=== PATIENT | female | born 1950 | race Caucasian/White ===

== ENCOUNTER 2016-06-13 11:33 | Day surgery (SDC) | payer MEDICARE ==
[~2016-06-13] VITALS: Ht 165.1 cm; Wt 76.9 kg
[2016-06-13] VITALS (15 sets, daily range): BP systolic 112–184; BP diastolic 65–94; PULSE 65–88; RESP 13–19; O2SAT 94–100
[2016-06-13] MEDS: Lactated Ringer's 1,000 ML IV SCH ×3 (05:00→13:38)
[~2016-06-13 11:33] MED LIST: ALPR0.5T8 PO; AMLO5TAB2 PO; ATOR20TA65 PO; CeFAZolin Inj 2 GM in IV Premix 1 EACH IV ONE; GABA-502 PO; HYDR25TA4 PO
[2016-06-13] MEDS ORDERED: fentaNYL-PF 50 mCg/mL 2 mL Inj ONE (11:34)
[2016-06-13] MEDS ORDERED: HYDROmorphone 2 mg/mL Inj ONE (11:34)
[2016-06-13] MEDS ORDERED: Ondansetron 2 mg/mL 2 mL Inj ONE (11:34)
[2016-06-13] MEDS ORDERED: Propofol 10,000 mCg/mL 20 mL Inj ONE (11:34)
[2016-06-13] MEDS ORDERED: Dexamethasone 4 mg/mL Inj ONE (11:34)
[2016-06-13] MEDS ORDERED: Glycopyrrolate 0.2 MG/ML 1mL Inj ONE (11:34)
[2016-06-13] MEDS ORDERED: Neostigmine 1 mg/mL 10 mL Inj ONE (11:34)
[2016-06-13] MEDS ORDERED: Rocuronium 10 mg/mL 5 mL Inj ONE (11:34)
[2016-06-13] MEDS ORDERED: CeFAZolin Inj 2 gm / 50mL D5W IV ONE (11:53)
[2016-06-13] MEDS ORDERED: Lactated Ringer's 1,000 ML IV SCH (13:33)
[2016-06-13] MEDS ORDERED: Lactated Ringer's 500 ML IV PRN (13:33)
--- NOTE | 2016-06-13 13:33 | PCM.HPANE ---
Patient Data Surgeon Admitting Provider: Attending Provider:Cesar Crook MD Primary Care Physician:Vivienne Lares PA-C Other Provider: Reason for Visit Left Breast Dcis, Left Adrenal Mass Ht/WT & BMI Height (Feet): 5 Height (Inches): 5 Weight (Kilograms): 77.56 Body Mass Index 28.00 Allergies Coded Allergies: codeine (Verified Allergy, Unknown, 07/25/13) ENTERED FROM WRITTEN PREOP ORDER Past Anesthesia History Anesthesia History: Denies:: Abnormal Airway, Anesthesia Reactions, Difficult Intubation, Fam Anesthesia Reaction, Fam Malignant Hypertherm, Malignant Hyperthermia Diabetes History Hx Diabetes?: No MRSA MRSA: No Medications Hypertension Medication: Yes Home Meds Incl Beta Ta: No Reported Medications Alprazolam 0.5 Mg Tablet0.5 Mg PO TID PRN For Anxiety or Agitation Ref 0 04/26/16 Hydrochlorothiazide 25 Mg [id number] Mg PO DAILY Ref 0 04/26/16 Atorvastatin Calcium 20 Mg [id number] Mg PO DAILY Ref 0 04/26/16 Gabapentin 300 Mg [id number] Mg PO DAILY Ref 0 04/05/16 Amlodipine 5 Mg Tablet5 Mg PO DAILY Ref 0 04/05/16 History History of ENT Problems?: Yes HEENT History: Denies:: Abnormal Airway Difficult Intubation Dysphagia Sinus Problem Hx of Heart Problems?: No Cardiovascular History: Positive for:: Hypertension Denies:: Chest Pain Congestive Heart Failure Heart Murmur Pacemaker Rheumatic Fever Thrombophlebitis Hx of Respiratory Problem?: No Respiratory History: Denies:: Asthma COPD Emphysema Oxygen Administration Tuberculosis Use of C-PAP Machine Hx Neurologic Problems?: Yes Neurological History: Denies:: Alzheimer's Disease CVA Dementia Dizziness Headaches Seizures Hx of GI Problems?: Yes Gastrointestinal History: Positive for:: Gall Bladder Disease (removed) Denies:: Cirrhosis Diverticulitis Gastroesphageal Reflux Heartburn Hepatitis Rectal Bleeding Hx of Problems?: No Genitourinary History: Denies:: HX of Hemodialysis Kidney Stones Urinary Tract Infection Female Hx: Positive for:: Problems with Breasts? (left breast, BRCA2+ current admission problem) Denies:: Currently Endometriosis Pelvic Inflammatory Skin History: Denies:: History Skin Disorders? Pressure Ulcers Hx Musculoskeletal Problems?: No Musculoskeletal History: Positive for:: Back Injury (hx ruptured disk C3) Hx of Psycho/Social Problems?: No Psycho Social History: Denies:: Anxiety Bipolar Disorder Hx Depression Suicide Attempt Hx Surgeries?: Yes (hernia, , gallbladder) Hx Any Other Health Problems?: Yes Other History: Positive for:: Cancer (left breast) Hospitalization Denies:: Endocrine Disease Thyroid Disease History Blood Transfusions: Denies:: Blood Transfuse Reaction Blood Transfusions Hx Diabetes: No Hx Alcohol Use: Yes (1-2 glasses per week)Hx Substance Use: No Smoking Status: Never Smoker Have You Smoked inLast 12 mo: No Stop/Bang S-Snoring: Do You Snore Loudly: No T-Tired: feel tired, fatigued: No O-Obsered: Observed not breath: No P-Blood Pressure: treated: Yes B- Body Mass Index > 35 kg/m2: No A- Age over 50: Yes N- Neck Large Circumference: No G- Gender Male: No BARBARA Total Score: 2 Risk Assessment Category Category 1A: Patient has history of documented sleep apnea, and HAS NOT received any narcotic, sedative or anesthesia administration during this stay. Category 1B: Patient has history of documented sleep apnea, and HAS received any narcotic , sedative or anesthesia administration during this stay Category 2: Patient has SUSPECTED Obstructive Sleep Apnea, and HAS received any narcotic , sedative or anesthesia administration during this stay. Category 3: Patient has SUSPECTED Obstructive Sleep Apnea and HAS NOT received narcotic, sedative or anesthesia administration during this stay. Category 4: Outpatient in Procedural Areas with known sleep apnea or who screen positive for High Risk via the STOP/BANG questionnaire. Exam Exam General Appearance: Alert, Oriented X3, Cooperative, No Acute Distress HEENT/AIRWAY: MP 2, Neck Movement (FROM), Mouth Opening (3 FBMO) Lungs: Clear to Auscultation, Normal Air Movement Heart: Exam Unremarkable, Regular Rate/Rhythm, No Murmurs/Rubs/Gallops Plan Impression Patient chart reviewed, patient interviewed and anesthestic plan with risks, benefits, and alternatives discussed, and informed consent obtained. NPO Status: 02/19/13 ASA Physical Status: ASA2 Mod Systemic Disease Anesthetic Plan: GA Bene/Risks/Altern/Consents: Yes HP Complete Prior to Induction: Yes Preston Brink MD Jun 13, 2016 10:20
[2016-06-13] MEDS ORDERED: Atropine 0.4 mg/mL Inj IVPUSH PRN (13:35)
[2016-06-13] MEDS ORDERED: MetoCLOpramide 5 mg/mL 2 mL Inj IVPUSH PRN ×3 (13:35→19:20)
[2016-06-13] MEDS ORDERED: Ondansetron 2 mg/mL 2 mL Inj IVPUSH PRN ×3 (13:35→19:20)
[2016-06-13] MEDS ORDERED: HYDROmorphone 1 mg/mL Inj IVPUSH PRN ×2 (13:35→19:20)
[2016-06-13] MEDS ORDERED: EPHEDrine Sulfate 50 mg/mL Inj IVPUSH PRN (13:35)
[2016-06-13] MEDS ORDERED: Labetalol 5 mg/mL 4 mL Inj IV PRN (13:35)
[2016-06-13] MEDS ORDERED: Phenylephrine 10,000 mCg/mL Inj IVPUSH PRN (13:35)
[2016-06-13] MEDS ORDERED: Bupivacaine-MPF 0.5% W/EPI 30 mL Inj INFILTRATE ONE (13:38)
[2016-06-13] MEDS: Dextrose 5% Lactated Ringer's 1,000 ML IV SCH (14:32)
[2016-06-13] MEDS ORDERED: Morphine PCA 1 mg/mL 30 mL Inj IV PRN (14:35)
[2016-06-13] MEDS ORDERED: Acetaminophen IV 1,000 MG in IV Premix 1 EACH IV PRN (14:35)
--- NOTE | 2016-06-13 14:43 | PCM.SURGOP ---
Surgical Operative Report Date of Service: Jun 13, 2016 Pre Operative Diagnosis Left breast DCIS, BRCA2 mutation Post Operative Diagnosis Same Procedure: Left simple mastectomy, left axillary sentinel lymph node biopsy Surgeon and Marine Pilot: Surgeon: Cesar Crook MD Assistants: Hans Lemons PA-C Indication for Procedure 65-year-old woman who was diagnosed with left breast DCIS. She had an asymmetry with clustered amorphous calcifications in the left breast 10 o'clock position posterior depth. She had genetic testing which came back positive for BRCA2 mutation. She was also found to have a 6.2 cm left adnexal mass, and was referred to ENGINEERING ANALYST oncology in [place]. After consideration of her surgical options, she was interested in unilateral left simple mastectomy without breast reconstruction. After discussion of risks and benefits, she agreed to proceed with left simple mastectomy, left axillary sentinel lymph node biopsy. Findings: There were a total of 4 sentinel nodes in the left axilla. The first sentinel node had an ex vivo count of 247. The next specimen consisted of 2 lymph nodes , called sentinel lymph node #2 and 3, with an ex vivo count of 424. [place] lymph node #4 had an ex vivo count of 377. The background count was 28. Procedure Details Preoperatively, the patient underwent left breast radiotracer injection for sentinel lymph node identification, which was allowed to remain in the breast tissue for one hour. She was then brought to the operating room, where she underwent smooth induction of general anesthesia with an LMA. She was placed in the supine position, and was prepped and draped in wide sterile fashion. There was a strong radiotracer signal in the left axilla. An elliptical skin incision was made oriented transversely, encompassing the nipple areolar complex. Skin flaps were raised superiorly and inferiorly. Circumferential dissection was carried out as the skin and subcutaneous tissue was elevated off the underlying breast capsule. Margins of dissection were the left clavicle, the midline, the left inframammary crease, the left anterior axillary line. The left breast was then dissected off the chest wall, and pectoralis fascia was resected en bloc. Perforating medial and lateral vessels were controlled with medium hemoclips. There was no evidence of chest wall invasion. The left breast was oriented with suture, and passed off the field for permanent pathology. The left axillary fascia was then incised, gaining access to the loose areolar tissue of the axilla. Using the gamma probe as a guide, the areas of maximum radiotracer activity were isolated, dissected free. There were a total of 4 sentinel lymph nodes. None of them were pathologic by palpation. The first sentinel lymph node had an ex vivo gamma count of 247. The next specimen consisted of 2 visible lymph nodes, with an ex vivo gamma count of 424. The next lymph node, which was sentinel lymph node #4, had an ex vivo gamma count of 377. The background count in the left axilla was 28. Hemostasis was adequate. A 19 Indonesian round JARED drain was brought out through a separate incision laterally, and secured to the skin with a 2-0 nylon stitch. The skin incision was closed with interrupted deep dermal 3-0 Vicryl suture, and a running 4-0 Vicryl subcuticular stitch. Steri-Strips and sterile dressings were applied. At the end of the case all needle and sponge counts were correct 2. The patient was awakened from anesthesia without difficulty, and taken to the recovery room in satisfactory condition, having tolerated the procedure well. Complications There were no periprocedural complications identified. Surgical Specimen Removed: Yes Specimen sent to Pathology: Yes Surgical Specimen description: Left breast. Left axillary sentinel lymph node #1. Left axillary sentinel lymph nodes #2 and 3. Left axillary sentinel lymph node #4. Anesthetic Plan: GA Grafts, Implants: None Output, Estimated Blood Loss: 20 Blood Administration during sanz: No Drains: JARED Drain #1 Catheters: None copies to: Vivienne Lares PA-C; Artem Daniel Joshua D MD Jun 13, 2016 14:43
--- NOTE | 2016-06-13 14:52 | PCM.ANEP2 ---
Post Anesthesia Evaluation ASA/CMS Post Anesthesia VS in Patient's Normal Range?: Yes Resp Stable; Airway Patent?: Yes CV Function & Hydration Stable: Yes Mental Status Recovered?: Yes Pain control Satisfactory?: Yes N/V Control Satisfactory?: Yes Preston Brink MD Jun 13, 2016 14:52
--- NOTE | 2016-06-13 14:52 | PCM.ANEP1 ---
Post Anesthesia Phase 1 PACU Phase 1 Assessment Date of Service: Jun 13, 2016 Vital Signs Vital Signs Date Time Temp Pulse Resp B/P Pulse Ox O2 Delivery O2 Flow Rate FiO2 06/13/16 12:00 35.8 69 18 153/80 97 Room Air 06/13/16 11:51 70 17 153/80 97 Room Air Anesthetic Administered: GA Level of Alertness: Awake, talking MOHAMUD's with Equal Strength: Yes Pain: No Nausea or Vomiting: No Oxygen Delivery: Simple Mask Lungs: Clear to Auscultation, Normal Air Movement Dermatome Level: Full Sensation Preston Brink MD Jun 13, 2016 14:52
[2016-06-13] MEDS: fentaNYL-PF 50 mCg/mL 2 mL Inj IVPUSH PRN ×4 (15:19→16:50)
--- NOTE | 2016-06-13 16:38 | DRSVH ---
PROCEDURE: NM SENTINEL NODE INJECTION ONLY, LEFT BREAST RADIOPHARMACEUTICAL: 0.5 mCi Millipore filtered Tc-99m sulfur colloid. INDICATIONS: left breast cancer PROCEDURE: The indications, alternatives, benefits, risks, and complications of the procedure were explained to the patient. Written informed consent was obtained and placed in the chart. The area around the nip ple was prepped and draped in a sterile fashion. Tc-99m sulfur colloid was injected in the outer edg e of the areola in the left breast. No image was obtained. IMPRESSION: Administration of radiotracer into the left breast periareolar region for intra-operativ e sentinel lymph node localization. Dictated by: Ramirez Stearns M.D. on 06/13/2016 at 16:36 Approved by: Ramirez Stearns M.D. on 06/13/2016 at 16:36
[2016-06-13] MEDS ORDERED: ALPRAZolam 0.5 mg Tablet PO PRN (18:35)
[2016-06-13] MEDS ORDERED: HYDROmorphone PCA 0.2 mg/mL 30 mL Inj - Over 64 Yrs/SA IV PRN (19:20)
[2016-06-13] MEDS ORDERED: Ondansetron 8 mg ODT Tablet PO PRN (19:20)
[2016-06-13] MEDS ORDERED: HYDROmorphone 0.5 mg/0.5 mL iSecure Syringe IVPUSH PRN (19:20)
--- NOTE | 2016-06-13 19:53 | NUR ---
Admit to [facility] Pt arrived on [facility] from day surgery at 1815 hrs. Alert and oriented X 3. VSS. PIV intact and patent. Family with pt. Left chest dressing clean, dry, and intact. Personal possessions with pt and placed in closet. Care continues.
[2016-06-14 00:50] VITALS: BP 157/59; PULSE 83; RESP 16; O2SAT 94
--- NOTE | 2016-06-14 02:52 | NUR ---
Pain Good pain control with FLEX O WRITER OPERATOR dilaudid.VSS.[place]aven. po fluids and food w/o c/o nausea,UOP qs.Dressing CDI.JARED compressed with mod. amt. bloody drainage noted.Moving well with SBA.Sleeping soundly at this time and resting comfortably.Will cont. to monitor.
[2016-06-14] MEDS: Dextrose 5% Lactated Ringer's 1,000 ML IV SCH (03:49)
[2016-06-14 04:00] VITALS: RESP 16; O2SAT 93
[2016-06-14 04:49] VITALS: BP 143/81; PULSE 65; RESP 18; O2SAT 94
[2016-06-14] MEDS ORDERED: oxyCODONE-Acetamin 5-325 mg Tablet PO PRN (07:15)
[2016-06-14] MEDS ORDERED: OXYC1TAB24 PO (07:17)
--- NOTE | 2016-06-14 07:17 | PCM.DISURG ---
Surgical Discharge Instruction Date of Service Jun 14, 2016 Dates of Hospitalization Date of Hospital Admission Providers Admitting Physician: Primary Care Physician: Vivienne Lares PA-C Attending Physician: Cesar Crook MD Discharge Diagnosis Discharge Diagnosis left breast cancer Post Operative diagnosis Same Diet Discharge Diet: No restrictions Activity Discharge Activity-General: Activity as pain allows Dressing and Incisional Care Dressing Care: Allow Steri Stripes to fall off Hygiene: May shower Additional Instructions Discharge Instructions Strip JARED drain and record output daily, or more frequently as needed. Call the surgery clinic when JARED output is less than 30mL in 24 hours for 2 consecutive days, and the drain can be removed at that time. Follow Up Plan Follow Up Plan with Dr. Crook in 2 weeks Call your provider for: Fever (over 101.5), Discharge @ incision, pus discharge Cesar Crook MD Jun 14, 2016 07:17
--- NOTE | 2016-06-14 08:08 | PCM.DC.SUR ---
Discharge Summary Date of Service: Jun 14, 2016 Date of Hospital Admission: June 13, 2016 Date of Operation(s): June 13, 2016 Date of Discharge: June 14, 2016 Diagnosis at Time of Discharge Left breast DCIS, BRCA2 mutation Problems: (1) Breast cancer, left Qualifiers: Patient gender: female Status: Acute ICD Code: C50.912 Operation left simple mastectomy, left axillary sentinel lymph node biopsy Brief History and Physical: SUBJECTIVE: The patient is seen in followup. She is doing well. She had minimal pain overnight. She has no nausea. OBJECTIVE: Temperature 36.7, pulse 65, blood pressure 143/81, saturation 94% on room air. In general, she is sitting up in bed, in no acute distress. Chest is clear. Heart: Regular rate and rhythm. No murmurs. Breasts: Her left mastectomy incision is intact with no evidence of hematoma. Skin flaps are well perfused. The JARED drain is serosanguineous, output overnight was 70 cc. LABORATORY: Hematocrit 39.8. Creatinine 0.91, glucose 152. Consultants: None Hospital Course: The patient was taken to the operating room for a simple mastectomy of the left breast with a left axillary sentinel lymph node biopsy. The procedure was performed without incident and the patient was then transferred to the post anesthesia care unit in stable condition. After a short stay, she was then transferred to the surgical floor where she remained for 1 day. On hospital day number 2, she was found to be tolerating her pain well and was able to tolerate a regular diet. She was then discharged to home in stable condition. Pathology: Pending Disposition: To Home in good condition. Follow-up Plan: She will be discharged to home today after JARED drain teaching and physical therapy education for dedfb-am-auqswy exercises. Her JAI ALAI PLAYER will be discontinued and she will be placed on Percocet for pain. She will follow up in the Surgery Clinic when JARED output is less than 30 cc in a 24 hour period. Alprazolam (Alprazolam) 0.5 Mg Tablet 0.5 MG PO TID PRN PRN For Anxiety or Agitation (Reported) Amlodipine (Amlodipine) 5 Mg Tablet 5 MG PO DAILY (Reported) Atorvastatin Calcium (Atorvastatin Calcium) 20 Mg Tablet 20 MG PO DAILY ( Reported) Gabapentin (Gabapentin) 300 Mg Capsule 300 MG PO DAILY (Reported) Hydrochlorothiazide (Hydrochlorothiazide) 25 Mg Tablet 25 MG PO DAILY (Reported ) oxyCODONE-Acetaminophen 5-325 mg (oxyCODONE-Acetaminophen 5-325 mg) 1 Each Tablet 1 TAB PO Q6H PRN PRN For Pain Discharge Medications: Percocet 5-325, 1 PO every 6 hours as needed for pain. copies to: Vivienne Lares PA-C, Samuel L PA-C Jun 14, 2016 08:08
--- NOTE | 2016-06-14 08:14 | PROG NOTE ---
[address] [address] PROGRESS NOTE PATIENT: SUSAN RIOS : 1950 MR#: [id number] ADMIT: 06/13/2016 JOB ID: [id number] DATE: 06/14/2016 SUBJECTIVE: The patient is seen in followup. She is doing well. She had minimal pain overnight. She has no nausea. OBJECTIVE: Temperature 36.7, pulse 65, blood pressure 143/81, saturation 94% on room air. In general, she is sitting up in bed, in no acute distress. Chest is clear. Heart: Regular rate and rhythm. No murmurs. Breasts: Her left mastectomy incision is intact with no evidence of hematoma. Skin flaps are well perfused. The JARED drain is serosanguineous, output overnight was 70 cc. LABORATORY: Hematocrit 39.8. Creatinine 0.91, glucose 152. ASSESSMENT/PLAN: A 65-year-old woman with left breast cancer, postoperative day one, status post left simple mastectomy with left axillary sentinel lymph node biopsy. She is doing well clinically. She will be discharged to home today after JARED drain teaching and physical therapy education for nlyat-ta-lqilgl exercises. Her PRODUCT SCIENTIST will be discontinued and she will be placed on Percocet for pain. She will follow up in the Surgery Clinic when JARED output is less than 30 cc in a 24 hour period.
[2016-06-14 09:09] VITALS: RESP 16; O2SAT 98
--- NOTE | 2016-06-14 10:00 | NUR ---
Evaluation completed. Please go to "Notes" then click on "Assessments and Notes" (bottom left corner of screen). Then select appropriate discipline tab on top of screen.
--- NOTE | 2016-06-14 11:16 | NUR ---
Social Work-initial assessment/discharge: Data:See initial assessment. Pt is a 65 y/o female who was admitted for left breast per H&P. Pt's insurance is [employer] and [employer]. Pt's PCP is VICKY Logan. EMR reviewed. CHICA met with pt and David at bedside to discuss discharge planning, SW role explained. Pt is alert and oriented x3. Pt resides at home with her where she remains independent with ADLS. Pt does not use any DME and drives. Pt has no HH or SNF history. Pt has no regional intermodal truck driver care or VA benefits. SW discussed DPOA/ advanced directive and pt confirms she has completed this, SW encouraged a copy to be brought into the hospital. PT saw pt and cleared for home, no needs, ambulating 200ft. Pt is medically stable for discharge home today. Pt and agreeable to plan of home no needs. Pt's to transport home today. No discharge needs identified. All updated and agreeable to plan. Assessment:Pt who is independent at baseline. Plan:Pt to discharge home today via POV. No discharge needs identified. All updated and agreeable to plan. LEAH Lynch Addendum: 06/14/16 at 1119 by VESNA HODGES Amended: Links added.
--- NOTE | 2016-06-14 11:24 | NUR ---
Discharge Pt d/c'd home at approx 1120. Reviewed d/c instructions w/ patient and her sig other. No questions or concerns at this time. Demonstrated how to strip and drain JARED drain. IV d/c'd intact. Pt left w/ all belongings and hard copy of RX. Taken to her sig other's POV via w/c.
--- NOTE | 2016-06-20 14:26 | PATH ---
SURGICAL PATHOLOGY Attending Physician:Rob Hoang CASE STATUS: Signed Out PATIENT NAME: SUSAN RIOS PID: [id number] : 1950 DATE COLLECTED:06/13/2016 23:48 SPECIMEN: 1: Breast, Simple Mastectomy (lymph nodes submitted separately) 2: [place] [facility] 3: [place] [facility] 4: [place] [facility] CLINICAL HISTORY: LEFT BREAST DUCTAL CARCINOMA IN SITU 1). LEFT BREAST, SHORT STITCH SUPERIOR, LONG LATERAL, OUT @ 14:02 TIF 14:04 2). SENTINEL LYMPH NODE #1, OUT @ 14:07 TIF 14:11 3). SENTINEL LYMPH NODE #2 & 3, OUT @ 14:11 TIF 14:13 4). SENTINEL LYMPH NODE #4, OUT @ 14:14 TIF 14:15 FINAL DIAGNOSIS: 1. Left Breast, Mastectomy: Invasive carcinoma of the breast. Procedure: Total mastectomy. Lymph node sampling: Four sentinel lymph nodes (parts 2-4) and two non-sentinel lymph nodes (part 1). Tumor site: Medial. Tumor size: 10 mm. Histologic type: Invasive lobular carcinoma. Histologic grade: ([place] histologic score) Tubular differentiation: Score 3. Nuclear pleomorphism: Score 2. Mitotic rate: Score 1. Overall grade: Grade 2 (score 6/9). Tumor focality: Single focus. Ductal carcinoma in situ: Present. Size (extent) of DCIS: Estimated extent of DCIS is 5 mm. Architectural patterns: Solid. Nuclear grade: Grade 2 (intermediate). Necrosis: Present, focal. Lobular carcinoma in situ: Present, estimated 7 mm in area of invasive carcinoma. Macroscopic and microscopic extent of tumor: Skin: Not involved. Nipple: Not involved. Margins: All margins are uninvolved by invasive carcinoma. Distance to closest margin: Invasive carcinoma: Greater than 1 cm. In situ carcinoma: Greater than 1 cm. Lymph nodes: Total number of lymph nodes examined (sentinel and non-sentinel); 6. Number of sentinel lymph nodes examined: 4 (see parts 2-4). Lymph node involvement: Number of lymph nodes with metastases: 0. Pathologic staging: Primary tumor: pT1b. Regional lymph nodes: pN0. Additional pathologic findings: Fibrocystic changes, small fibroadenoma. Prior core biopsy site identified. Ancillary Studies: ER: 95% positive, moderate nuclear staining. ID: 40% positive, moderate nuclear staining. HER2: 2+, equivocal for overexpression of oncoprotein. HER2 testing by FISH is pending, addendum to follow. 2. [place] Lymph [facility] #1: One lymph node, negative for metastatic carcinoma. 3. [place] Lymph Nodes #2 and #3: Two lymph nodes, negative for metastatic carcinoma. 4. [place] Lymph [facility] #4: One lymph node, negative for metastatic carcinoma. ICD10 C50.912 GROSS DESCRIPTION: 1). The specimen is received in formalin, labeled with the patient's name and "left breast". It consists of a 430 gram mastectomy specimen measuring 15.5 cm medial to lateral by 15 cm superior to inferior by 4.3 cm anterior to posterior. There an overlying 14.5 x 6.9 cm, unremarkable skin ellipse with a 4.3 x 4.0 cm nipple areolar complex. The specimen is oriented with a short stitch designating superior and a long stitch designating lateral. The specimen is inked as follows: purple-anterior, yellow-posterior, black-superior, orange-inferior, green-medial, blue-lateral. The specimen is serially sectioned to reveal a 3.7 x 2.8 x 1.6 cm, firm, well-defined mass in the lower outer quadrant. The mass is located 0.3 cm from the posterior margin and 3.0 cm from the inferior margin. There are multiple calcifications present in the middle to inner upper and lower quadrants, but no other discrete masses. One card-brown lymph node is identified in the axillary tail measuring 2.5 x 1.5 x 1.4 cm with a card-pink to card-brown cut surface. 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 Additional examination of the inner quadrant shows a patchy fibrous and cystic area measuring 6 cm ML by 6 cm SI by 3 cm AP. The changes are greater than 1 cm from the anterior and posterior margins. A small 0.4 x 0.4 x 0.4 cm firm round, well circumscribed nodule is identified in slices 8 and 9, approximately 1.3 cm from the closest inked orange inferior margin. An additional possible lymph node and possible lymph node fragment are identified laterally. Additional sections submitted as follows: 1M- one possible lymph node, bisected; 1N- possible lymph node fragment; 1O- customer account representative slice 2 medial to cystic area; 1P- customer account representative section slice 3; 1Q- customer account representative section slice 4; 1R- customer account representative section slice 5 (just anterior to 1H). 1S-1T- customer account representative slice 6 in composite. 1U- customer account representative slice 7 with relation to anterior inked margin. 1V- customer account representative slice 7, inferior. 1W- customer account representative slice 8 with possible biopsy site. 1X- customer account representative slice 9. 1Y- customer account representative slice 10 normal tissue lateral to abnormal area. 1Z-1AA nodule spanning slice 8 and 9 with relation to margin. (:[id number]) 2). The specimen is received in formalin, labeled with the patient's name and "sentinel lymph node #1". It consists of one card-brown rubbery lymph node measuring 1.7 x 1.3 x 0.9 cm. The specimen is serially sectioned to reveal a card-brown cut surface and entirely submitted in cassette 2A. 3). The specimen is received in formalin, labeled with the patient's name and "sentinel lymph node #2 and 3". It consists of a 3.1 x 2.1 x 1.1 cm, card-yellow fatty tissue within which two card-brown rubbery lymph nodes are identified measuring 1.2 x 0.9 x 0.6 cm and 1.5 x 1.1 x 0.5 cm. The lymph nodes are entirely submitted in cassettes 3A and 3B with one bisected lymph node per cassette. 4). The specimen is received in formalin, labeled with the patient's name and "sentinel lymph node #4". It consists of one card-brown rubbery lymph node measuring 1.6 x 1.2 x 1.1 cm. The specimen is serially sectioned and entirely submitted in cassettes 4A and 4B. Note: Approximate fixation time is 31 hours using a collection time of 06/13/2016 at 1400. (COREEN:[id number]) MICRO DESCRIPTION: Sections are of breast tissue with an invasive carcinoma identified in block 1S and DCIS identified in blocks 1S and 1I. Also present are many fibrocystic changes, including apocrine metaplasia, sclerosing adenosis, cystic ducts, and florid epithelial hyperplasia. A small fibroadenoma is identified in block 1Q. Complex sclerosing lesions are seen in 1D and other areas. Two lymph nodes are identified in part 1, both are negative for metastatic carcinoma. Immunostains are performed to further characterize the tumor. The tumor (blocks 1S and 1I) is stained with the antibodies listed below. Positive and negative controls stain appropriately. AntibodyResult E-cadherin (36)Negative on invasive carcinoma. Negative on some in situ, positive in other in situ. Estrogen receptor (SP1)Positive, 95%, moderate nuclear staining (invasive carcinoma). Progesterone receptor (1E2)Positive, 40%, moderate nuclear staining (invasive carcinoma). HER2/jose (4B5)2+, equivocal for overexpression (invasive carcinoma). Interpretation: The e-cadherin studies confirm the H&E impression of invasive lobular carcinoma, and a mix of DCIS and LCIS. The invasive tumor is positive for ER, positive for ID, and equivocal for overexpression of HER2 oncoprotein. *Some of the immunohistologic tests used in this case were developed and their performance characteristics determined by [facility]. They have not been cleared or approved by the [place] Food and Drug Administration. The FDA has determined that such clearance or approval is not necessary. This test is used for clinical purposes and should not be regarded as investigational or for research purposes. This laboratory is certified under the Clinical Laboratory Improvement Amendments (CLIA) of 1988 as qualified to perform high-complexity clinical laboratory testing. 2, 3 and 4) Please see diagnosis. ICD-9 CODES: CPT CODES: 1: 17870, 23312, 36334, 21803, 34224, 76077, inter, 86774, 41197 2: 45939 3: 09309 4: 40365 PROCEDURE/ADDENDA: Addendum SPI Addendum Diagnosis TEST: HER-2/CEP17 FISH PATIENT RATIO: 2.37 Ave Her2/jose: 4.70 Ave CEP17: 2.00 FISH RESULT: POSITIVE FOR AMPLIFICATION OF HER-2/jose Addendum Comment Please see [facility] Report [id number] for complete details. Electronically Signed Out Margareth Phillips MD Electronically Signed Out Margareth Phillips MD Formerly [facility] [address], [place] [address] Technical component performed at [facility], [address], [address]
== END 2016-06-14 11:20 | disposition home or self-care (01) ==
LOC: SAS 11:33 → OSC 18:22 → SAS 06-14 11:20
PROVIDERS: ATTEND Student in an Organized Health Care Education/Training Program
DX: C50.412 Malignant neoplasm of upper-outer quadrant of left female breast (principal); I10 Essential (primary) hypertension; E78.5 Hyperlipidemia, unspecified; E27.9 Disorder of adrenal gland, unspecified; F32.9 Major depressive disorder, single episode, unspecified; E78.1 Pure hyperglyceridemia; F17.210 Nicotine dependence, cigarettes, uncomplicated
CPT/HCPCS: 19303; 36415; 38525; 38792; 80048; 85014; 88307; 88309; 88341; 88342; 88360; 88365; 97161; A9541; G8978; G8979; G8980; J0131; J0690; J1100; J1170; J2250; J2405; J2710; J3010; J7120